=== PATIENT | male | born 1975 | race Caucasian/White ===

== ENCOUNTER 2025-03-07 23:31 | Emergency (ER) | payer SELFPAY ==
[~2025-03-07] VITALS: Ht 180.3 cm; Wt 82.0 kg
[2025-03-07 23:40] VITALS: TEMP 36.8; O2SAT 99
[2025-03-08] MEDS ORDERED: AMOX1TAB16 MT (00:25)
[2025-03-08] MEDS: TETANUS, DIPHTHERIA, PERTUSSIS VAC/PF 0.5ML (>10YR OLD) IM ONE (00:27)
[2025-03-08 01:31] VITALS: BP 124/91; PULSE 63; RESP 14; O2SAT 100
== END 2025-03-08 01:34 | disposition home or self-care (01) ==
LOC: ER 23:31
DX: S81.852A Open bite, left lower leg, initial encounter (principal); Z79.899 Other long term (current) drug therapy; W54.0XXA Bitten by dog, initial encounter; Y93.89 Activity, other specified; Y92.89 Other specified places as the place of occurrence of the external cause; Y99.8 Other external cause status
CPT/HCPCS: 90471; 90715; 99283